=== PATIENT | female | born 1960 | race Caucasian/White ===

== ENCOUNTER 2021-03-29 11:53 | Emergency (ER) | payer BC ==
[~2021-03-29] VITALS: Ht 175.3 cm; Wt 136.4 kg
[2021-03-29 14:10] LABS: BASOPHILS % (AUTO) 0.6 % (0-1); EOSINOPHILS % (AUTO) 0 % (0-6); HEMATOCRIT 39.1 % (35.0-45.0); HEMOGLOBIN 13.4 g/dl (12.0-16.0); LYMPHOCYTES # (AUTO) 0.8 X10'3 (1.1-4.8); LYMPHOCYTES % (AUTO) 24.1 % (21-51); MEAN CORPUSCULAR HGB CONC 34.2 g/dL (33.0-36.5); MEAN PLATELET VOLUME 6.9 FL (7.4-10.4); MONOCYTES # (AUTO) 0.2 X10'3 (0-0.9); MONOCYTES % (AUTO) 4.9 % (2-12); NEUTROPHILS # (AUTO) 2.5 X10'3 (1.8-7.7); NEUTROPHILS % (AUTO) 70.4 % (42-75); PLATELET COUNT 228 X10'3 (140-440); RED CELL DISTRIBUTION WIDTH 13.5 % (11.5-14.5); WHITE BLOOD COUNT 3.5 X10'3 (4.5-11.0)
[2021-03-29 14:30] LABS: ALANINE AMINOTRANSFERASE 72 U/L (12-78); ALBUMIN 2.9 G/DL (3.4-5.0); ALBUMIN/GLOBULIN RATIO 0.7 (1.1-1.5); ALKALINE PHOSPHATASE 95 IU/L (46-116); ANION GAP 6 (8-16); ASPARTATE AMINO TRANSFERASE 50 U/L (10-37); BILIRUBIN,TOTAL 0.7 MG/DL (0.1-1.0); BLOOD UREA NITROGEN 19 MG/DL (7-18); BUN/CREATININE RATIO 22.4 (6.6-38.0); CALCIUM 8.1 MG/DL (8.5-10.1); CHLORIDE 95 MMOL/L (99-107); CREATININE 0.85 MG/DL (0.40-0.90); GLUCOSE 172 MG/DL (70-104); POTASSIUM 3.1 MMOL/L (3.5-5.1); SODIUM 129 MMOL/L (135-145); TOTAL CARBON DIOXIDE 27.9 MMOL/L (24-32); TOTAL PROTEIN 7.3 G/DL (6.4-8.2); eGFR 69 ML/MIN
[2021-03-29] MEDS ORDERED: potassium Cl 20 mEq SR tablet PO PRN (14:45)
[2021-03-29] MEDS ORDERED: normal saline 1000ML IV soln IVB ONE (14:45)
--- NOTE | 2021-03-29 15:00 | NUR ---
92% ON RA PRIOR TO WALKING WALKED 25FT 85% RA 2L NC 97 %
[2021-03-29] MEDS ORDERED: DEXA6TAB6 PO (15:08)
[2021-03-29] MEDS ORDERED: BUDE180A INH (15:08)
[2021-03-29] MEDS ORDERED: acetaminophen 325mg tablet PO ONE (15:10)
[2021-03-29] MEDS ORDERED: iohexol 350MG/ML 100ml bottle IV ONE (15:28)
[2021-03-29] MEDS ORDERED: ibuprofen tablet 400 MG TABLET PO ONE (16:20)
[2021-03-29 17:54] VITALS: BP 143/70
== END 2021-03-29 18:20 | disposition home or self-care (01) ==
LOC: ER 11:55
DX: U07.1 COVID-19 (principal)
CPT/HCPCS: 36415; 71045; 71275; 80053; 84145; 85025; 85379; 87635; 99285; C9803; J7030; Q9967

== ENCOUNTER 2021-04-01 12:56 | Inpatient (IN) | payer BC ==
[~2021-04-01] VITALS: Ht 175.3 cm; Wt 131.8 kg
[~2021-04-01 12:56] MED LIST: BUDE180A INH; DEXA6TAB6 PO
[2021-04-01] MEDS ORDERED: ALBUTEROL INHALER 1 PUFF/90 MCG INHALER IH PRN (13:00)
[2021-04-01] MEDS ORDERED: aspirin 81mg tab.chew PO ONE ×2 (13:00→18:50)
[2021-04-01 13:45] LABS: ABG BASE EXCESS 3.3 mmol/L (-2.0-2.0); ABG OXYGEN SATURATION 90.6 % (94-97); ABG PCO2 (T) 38.4 mmHg (32.0-45.0); ABG PO2 (T) 56.1 mmHg (75.0-100.0); ALLEN'S TEST POSITIVE; FCOHb 0.8 % (0.0-3.9); FLOW 15 L/min; FMetHb 0.3 % (0.0-1.5); FO2Hb 89.6 % (94-97); PATIENT TEMPERATURE 37.2; TOTAL HEMOGLOBIN 12.7 G/dl (12.0-16.0)
[2021-04-01] MEDS ORDERED: dexamethasone inj 8 MG in normal saline 50ml IV soln 50 ML IV ONE (13:45)
[2021-04-01 13:51] LABS: BASOPHILS % (AUTO) 0.2 % (0-1); EOSINOPHILS % (AUTO) 0 % (0-6); HEMATOCRIT 36.9 % (35.0-45.0); HEMOGLOBIN 12.2 g/dl (12.0-16.0); LYMPHOCYTES # (AUTO) 0.8 X10'3 (1.1-4.8); LYMPHOCYTES % (AUTO) 7.4 % (21-51); MEAN CORPUSCULAR HEMOGLOBIN 28.5 PG (27.0-31.0); MEAN CORPUSCULAR VOLUME 86.2 FL (78-98); MEAN PLATELET VOLUME 7.1 FL (7.4-10.4); MONOCYTES # (AUTO) 0.5 X10'3 (0-0.9); MONOCYTES % (AUTO) 4.1 % (2-12); NEUTROPHILS % (AUTO) 88.3 % (42-75); PLATELET COUNT 287 X10'3 (140-440); RED BLOOD COUNT 4.28 X10'6 (4.20-5.60); RED CELL DISTRIBUTION WIDTH 13.6 % (11.5-14.5); WHITE BLOOD COUNT 11.3 X10'3 (4.5-11.0)
[2021-04-01] MEDS ORDERED: enoxaparin 100mg/ml syringe SUBCUT ONE (14:05)
[2021-04-01 14:16] LABS: ALANINE AMINOTRANSFERASE 59 U/L (12-78); ALBUMIN 2.6 G/DL (3.4-5.0); ALBUMIN/GLOBULIN RATIO 0.6 (1.1-1.5); ALKALINE PHOSPHATASE 80 IU/L (46-116); ANION GAP 9 (8-16); ASPARTATE AMINO TRANSFERASE 54 U/L (10-37); BILIRUBIN,TOTAL 0.5 MG/DL (0.1-1.0); BLOOD UREA NITROGEN 19 MG/DL (7-18); BUN/CREATININE RATIO 22.1 (6.6-38.0); C-REACTIVE PROTEIN 4.68 MG/DL (0.0-0.5); CALCIUM 7.9 MG/DL (8.5-10.1); CHLORIDE 100 MMOL/L (99-107); CREATININE 0.86 MG/DL (0.40-0.90); GLUCOSE 207 MG/DL (70-104); POTASSIUM 3.9 MMOL/L (3.5-5.1); SODIUM 137 MMOL/L (135-145); TOTAL PROTEIN 7.2 G/DL (6.4-8.2); eGFR 68 ML/MIN
[2021-04-01] MEDS ORDERED: iohexol 350MG/ML 100ml bottle IV ONE (14:23)
[2021-04-01] MEDS ORDERED: LOSA1TAB39 PO (16:00)
[2021-04-01] MEDS ORDERED: ALBU8HFA PO (16:00)
[2021-04-01] MEDS ORDERED: ESTR1TAB31 PO (16:00)
[2021-04-01] MEDS ORDERED: BUDE180A INH (16:01)
[2021-04-01] MEDS ORDERED: DEXA6TAB PO (16:01)
[2021-04-01 16:44] LABS: ABG BASE EXCESS 0.6 mmol/L (-2.0-2.0); ABG HCO3 24.7 mmol/L (22.0-26.0); ABG OXYGEN SATURATION 94.6 % (94-97); ABG PCO2 (T) 37.9 mmHg (32.0-45.0); ABG PO2 (T) 71.8 mmHg (75.0-100.0); ALLEN'S TEST POSITIVE; FCOHb 0.7 % (0.0-3.9); FLOW 15 L/min; FO2Hb 93.9 % (94-97); TOTAL HEMOGLOBIN 12.4 G/dl (12.0-16.0)
[2021-04-01] MEDS ORDERED: LORazepam 2 mg/ml vial IV ONE (17:15)
[2021-04-01] MEDS ORDERED: diphenhydrAMINE 25mg capsule PO PRN (18:50)
[2021-04-01] MEDS ORDERED: magnesium Cl slow-release 64mg tablet PO PRN (18:50)
[2021-04-01] MEDS ORDERED: magnesium 2GM in 50ml NS 50 ML IV PRN (18:50)
[2021-04-01] MEDS ORDERED: HYDROcodone/acetaminophen 10/325mg tab PO PRN (18:50)
[2021-04-01] MEDS ORDERED: acetaminophen 325mg tablet PO PRN ×2 (18:50)
[2021-04-01] MEDS ORDERED: morphine 2 MG/ML inj. syringe IV PRN ×2 (18:50)
[2021-04-01] MEDS ORDERED: potassium Cl 20 mEq SR tablet PO PRN ×2 (18:50)
[2021-04-01] MEDS ORDERED: magnesium 4gm in 100ml NS 100 ML IV PRN (18:50)
[2021-04-01] MEDS ORDERED: potassium Cl 40MEQ/1/2NS 520ml 520 ML IV PRN ×2 (18:50)
[2021-04-01] MEDS ORDERED: bisacodyl 10mg suppository rectal RC PRN (18:50)
[2021-04-01] MEDS ORDERED: acetaminophen 650mg rectal suppository RC PRN (18:50)
[2021-04-01] MEDS ORDERED: albuterol 60 PUFF/8GM Inhaler IH PRN (18:50)
[2021-04-01] MEDS ORDERED: magnesium hydroxide 30ml (MOM) UD suspension PO PRN (18:50)
[2021-04-01] MEDS ORDERED: mag hydrox/Alum hydrox/simeth 30ml oral suspension PO PRN (18:50)
[2021-04-01] MEDS ORDERED: HYDROcodone/acetaminophen 5mg/325mg tablet PO PRN (18:50)
[2021-04-01] MEDS ORDERED: ondansetron/PF 4mg/2ml inj IV PRN (18:50)
[2021-04-01 19:21] LABS: HEMOGLOBIN A1C 7.8 % (4.5-6.2)
[2021-04-01] MEDS: K and/or MAG REPLACEMENT MC SCH (20:00)
[2021-04-01 20:20] VITALS: BP 138/66
--- NOTE | 2021-04-01 20:20 | NUR ---
PT ARRIVED TO 4009[facility] FROM ER. PT AMBULATED TO BED. RT HELP SET UP O2. VSS. PT HAS BEEN ORIENTED TO THE ROOM. RECEIVED REPORT FROM RAMU MANZANARES PRIOR TO PT'S ARRIVAL.
[2021-04-01] MEDS: enoxaparin 40mg/0.4ml syringe SUBCUT SCH (20:59)
[2021-04-01] MEDS: dexamethasone 4mg/ml inj IV SCH (21:00)
[2021-04-01] MEDS: docusate sod 100mg capsule PO SCH (21:00)
[2021-04-01 21:12] LABS: CLARITY,URINE CLEAR (Clear); COLOR,URINE YELLOW (Yellow); UA COLLECTION TYPE NON-SPECIFIED
[2021-04-01 21:13] LABS: GLUCOSE, URINE 500 mg/dl (Neg); KETONES,URINE 80 mg/dl (Neg); LEUKOCYTE ESTERASE ,URINE NEGATIVE (Neg); NITRITES, URINE NEGATIVE (Neg); PROTEIN,URINE NEGATIVE (Neg); UROBILINOGEN,URINE 0.2 E.U/dL (0.2-1.0)
[2021-04-01 21:14] LABS: BACTERIA,URINE NONE SEEN /HPF (Neg); OCCULT BLOOD,URINE TRACE-LYSED (Neg); RBC,URINE 0-2 /HPF (0-2); SQUAMOUS EPITHELIAL CELL,UR FEW /LPF (FEW); WBC,URINE NONE SEEN /HPF (0-4)
[2021-04-01] MEDS ORDERED: dextrose ORAL solution 15 GM/59 ML bottle PO PRN ×2 (21:50)
[2021-04-01] MEDS ORDERED: dextrose 50%-water 50ml dispensing syringe IV PRN ×2 (21:50)
[2021-04-01] MEDS ORDERED: MESSAGE TO PHARMACY PO ONE (21:50)
[2021-04-01] MEDS ORDERED: glucagon, human recombinant 1mg kit SUBCUT PRN (21:50)
[2021-04-01 22:00] VITALS: BP 137/68
[2021-04-01] MEDS: BUDESONIDE IH SCH (22:18)
[2021-04-01] MEDS: insulin Lispro (HumaLOG) vial - multi-dose SQ SCH (22:25)
[2021-04-01] MEDS: insulin glargine (Lantus) pen - multi-dose SQ SCH (22:28)
[2021-04-02 02:00] VITALS: BP 115/48
--- NOTE | 2021-04-02 06:25 | NUR ---
Problems reprioritized. Patient report given, questions answered & plan of care reviewed with RAMU BAIRES.
[2021-04-02] MEDS: enoxaparin 40mg/0.4ml syringe SUBCUT SCH ×2 (07:56→20:53)
[2021-04-02] MEDS: HYDROchlorothiazide 25mg tablet PO SCH (07:57)
[2021-04-02] MEDS: docusate sod 100mg capsule PO SCH ×2 (07:57→20:53)
[2021-04-02] MEDS: aspirin 81mg tab.chew PO SCH (07:58)
[2021-04-02] MEDS: K and/or MAG REPLACEMENT MC SCH ×2 (08:00→20:00)
[2021-04-02] MEDS: dexamethasone 4mg/ml inj IV SCH ×2 (08:00→20:53)
[2021-04-02] MEDS: losartan 50mg tablet PO SCH (08:04)
[2021-04-02 08:05] VITALS: BP 147/77
[2021-04-02 08:19] LABS: BASOPHILS % (AUTO) 0.3 % (0-1); EOSINOPHILS % (AUTO) 0 % (0-6); HEMATOCRIT 36.2 % (35.0-45.0); HEMOGLOBIN 12.2 g/dl (12.0-16.0); LYMPHOCYTES # (AUTO) 1.1 X10'3 (1.1-4.8); LYMPHOCYTES % (AUTO) 11.4 % (21-51); MEAN CORPUSCULAR HEMOGLOBIN 29.3 PG (27.0-31.0); MEAN CORPUSCULAR HGB CONC 33.7 g/dL (33.0-36.5); MEAN CORPUSCULAR VOLUME 86.8 FL (78-98); MEAN PLATELET VOLUME 7.4 FL (7.4-10.4); MONOCYTES # (AUTO) 0.5 X10'3 (0-0.9); MONOCYTES % (AUTO) 5.2 % (2-12); NEUTROPHILS # (AUTO) 8.3 X10'3 (1.8-7.7); NEUTROPHILS % (AUTO) 83.1 % (42-75); PLATELET COUNT 309 X10'3 (140-440); RED BLOOD COUNT 4.17 X10'6 (4.20-5.60); RED CELL DISTRIBUTION WIDTH 13.6 % (11.5-14.5); WHITE BLOOD COUNT 9.9 X10'3 (4.5-11.0)
[2021-04-02] MEDS: BUDESONIDE IH SCH ×2 (08:28→20:04)
[2021-04-02] MEDS: insulin Lispro (HumaLOG) vial - multi-dose SQ SCH ×2 (08:35→18:44)
[2021-04-02 08:46] LABS: D-DIMER 2.04 MG/L FEU (0-0.50)
[2021-04-02 09:03] LABS: ALANINE AMINOTRANSFERASE 53 U/L (12-78); ALBUMIN 2.5 G/DL (3.4-5.0); ALBUMIN/GLOBULIN RATIO 0.5 (1.1-1.5); ALKALINE PHOSPHATASE 96 IU/L (46-116); ANION GAP 11 (8-16); ASPARTATE AMINO TRANSFERASE 48 U/L (10-37); BILIRUBIN,TOTAL 0.4 MG/DL (0.1-1.0); BLOOD UREA NITROGEN 14 MG/DL (7-18); BUN/CREATININE RATIO 17.7 (6.6-38.0); C-REACTIVE PROTEIN 7.85 MG/DL (0.0-0.5); CALCIUM 8.4 MG/DL (8.5-10.1); CHLORIDE 102 MMOL/L (99-107); CHOLESTEROL 169 MG/DL (0-200); CREATININE 0.79 MG/DL (0.40-0.90); GLUCOSE 231 MG/DL (70-104); HDL CHOLESTEROL 42 MG/DL (35-60); LACTATE DEHYDROGENASE 748 U/L (81-234); LDL CHOLESTEROL 89 MG/DL (50-100); MAGNESIUM 2.7 MG/DL (1.5-2.4); PHOSPHORUS 3.5 MG/DL (2.3-4.5); POTASSIUM 4.4 MMOL/L (3.5-5.1); SODIUM 139 MMOL/L (135-145); TOTAL CARBON DIOXIDE 25.8 MMOL/L (24-32); TOTAL PROTEIN 7.3 G/DL (6.4-8.2); TRIGLYCERIDES 283 MG/DL (20-135); eGFR 75 ML/MIN
[2021-04-02 09:56] LABS: NUCLEATED RED BLOOD CELLS 1 /100WBC (0-0); PLATELET ESTIMATE NORMAL; TOTAL CELLS COUNTED 100
[2021-04-02 09:57] LABS: LARGE PLATELETS FEW
[2021-04-02 10:00] VITALS: BP 148/74
--- NOTE | 2021-04-02 10:50 | NUR ---
DM Consult: Pt hx "borderline DM no meds" w/ A1C 7.8% per EMR. Pt admit DX COVID-[address] RD d/w RN regarding possibly new DM this admit and if so pt would need DM DX by MD prior to RD education. PO 0% carbs first two meals pending other meal documentation on 15L HFNC per EMR. Glu 209-296mg/dl started on glycemic protocol receiving decadron. Will continue to monitor for further PO trends and nutrition intervention needs this admit. Rec: 1. continue carb controlled/heart healthy diet per MD; encourage PO 2. monitor for ONS needs pending PO trends 3. routine bowel care 4. scaled wt this admit; subsequent weekly wts 5. DM DX by MD this admit prior to RD education once more appropriate Addendum: 04/02/21 at [address] Amended: Links added.
[2021-04-02] MEDS ORDERED: zolpidem 5mg tablet PO PRN (12:25)
[2021-04-02] MEDS ORDERED: TOCILIZUMAB 80MG/4 ML INJ. 800 MG in normal saline 100ml IV soln 60 ML IV ONE (13:00)
[2021-04-02] MEDS ORDERED: REMDESIVIR INJ 200 MG in normal saline 100ml IV soln 60 ML IV ONE (13:30)
[2021-04-02 14:00] VITALS: BP 134/65
[2021-04-02 18:00] VITALS: BP 137/66
[2021-04-02] MEDS: vancomycin/NS 1 GM ADD-VANTAGE 250 ML IV SCH (18:08)
[2021-04-02] MEDS: ascorbic acid 500mg tablet PO SCH (18:15)
[2021-04-02] MEDS: zinc sulfate 220mg capsule PO SCH (20:53)
--- NOTE | 2021-04-02 21:08 | NUR ---
notified dr. Allen regarding positive blood culture. gram pos clusters in aerobic bottle. pt is already on vancomycin. no new order received.
[2021-04-02] MEDS: insulin glargine (Lantus) pen - multi-dose SQ SCH (21:12)
[2021-04-02 22:00] VITALS: BP 154/79
[2021-04-03] MEDS: vancomycin/NS 1 GM ADD-VANTAGE 250 ML IV SCH ×2 (00:38→08:11)
[2021-04-03 02:00] VITALS: BP 148/83
--- NOTE | 2021-04-03 06:19 | NUR ---
Problems reprioritized. Patient report given, questions answered & plan of care reviewed with neris Nassar.
[2021-04-03 07:00] VITALS: BP 108/63
[2021-04-03 07:23] LABS: BASOPHILS % (AUTO) 0.3 % (0-1); EOSINOPHILS % (AUTO) 0 % (0-6); HEMATOCRIT 37.3 % (35.0-45.0); HEMOGLOBIN 12.2 g/dl (12.0-16.0); LYMPHOCYTES # (AUTO) 1.1 X10'3 (1.1-4.8); LYMPHOCYTES % (AUTO) 11.2 % (21-51); MEAN CORPUSCULAR HEMOGLOBIN 28.6 PG (27.0-31.0); MEAN CORPUSCULAR HGB CONC 32.7 g/dL (33.0-36.5); MEAN CORPUSCULAR VOLUME 87.4 FL (78-98); MEAN PLATELET VOLUME 7.3 FL (7.4-10.4); MONOCYTES # (AUTO) 0.4 X10'3 (0-0.9); MONOCYTES % (AUTO) 4.4 % (2-12); NEUTROPHILS # (AUTO) 8.2 X10'3 (1.8-7.7); NEUTROPHILS % (AUTO) 84.1 % (42-75); PLATELET COUNT 303 X10'3 (140-440); RED BLOOD COUNT 4.27 X10'6 (4.20-5.60); RED CELL DISTRIBUTION WIDTH 13.4 % (11.5-14.5); WHITE BLOOD COUNT 9.7 X10'3 (4.5-11.0)
[2021-04-03] MEDS ORDERED: cholecalciferol (vitamin D3) 1,000 unit (25mcg) tablet PO SCH (08:00)
[2021-04-03] MEDS: docusate sod 100mg capsule PO SCH ×2 (08:00→20:15)
[2021-04-03] MEDS ORDERED: REMDESIVIR INJ 100 MG in normal saline 100ml IV soln 80 ML IV SCH (08:00)
[2021-04-03] MEDS: losartan 50mg tablet PO SCH (08:00)
[2021-04-03 08:06] LABS: D-DIMER 12.46 MG/L FEU (0-0.50)
[2021-04-03] MEDS: enoxaparin 40mg/0.4ml syringe SUBCUT SCH (08:12)
[2021-04-03] MEDS: HYDROchlorothiazide 25mg tablet PO SCH (08:12)
[2021-04-03] MEDS: aspirin 81mg tab.chew PO SCH (08:12)
[2021-04-03] MEDS: ascorbic acid 500mg tablet PO SCH ×2 (08:13→17:47)
[2021-04-03] MEDS: insulin Lispro (HumaLOG) vial - multi-dose SQ SCH ×3 (08:18→19:11)
[2021-04-03] MEDS: dexamethasone 4mg/ml inj IV SCH ×2 (08:19→20:15)
[2021-04-03 08:32] LABS: LARGE PLATELETS FEW; PLATELET ESTIMATE NORMAL; TOTAL CELLS COUNTED 100
[2021-04-03 08:50] LABS: ALANINE AMINOTRANSFERASE 54 U/L (12-78); ALBUMIN 2.4 G/DL (3.4-5.0); ALBUMIN/GLOBULIN RATIO 0.5 (1.1-1.5); ALKALINE PHOSPHATASE 115 IU/L (46-116); ANION GAP 8 (8-16); ASPARTATE AMINO TRANSFERASE 42 U/L (10-37); BILIRUBIN,TOTAL 0.5 MG/DL (0.1-1.0); BLOOD UREA NITROGEN 18 MG/DL (7-18); BUN/CREATININE RATIO 23.1 (6.6-38.0); CALCIUM 8.4 MG/DL (8.5-10.1); CHLORIDE 101 MMOL/L (99-107); CREATININE 0.78 MG/DL (0.40-0.90); GLUCOSE 190 MG/DL (70-104); LACTATE DEHYDROGENASE 650 U/L (81-234); MAGNESIUM 2.7 MG/DL (1.5-2.4); PHOSPHORUS 4.5 MG/DL (2.3-4.5); POTASSIUM 4.1 MMOL/L (3.5-5.1); SODIUM 137 MMOL/L (135-145); TOTAL CARBON DIOXIDE 28.2 MMOL/L (24-32); TOTAL PROTEIN 6.8 G/DL (6.4-8.2); eGFR 76 ML/MIN
[2021-04-03 10:00] VITALS: BP 123/67
[2021-04-03] MEDS: K and/or MAG REPLACEMENT MC SCH ×2 (10:33→20:00)
[2021-04-03] MEDS: BUDESONIDE IH SCH ×2 (10:43→19:40)
[2021-04-03] MEDS: zinc sulfate 220mg capsule PO SCH ×2 (10:43→20:15)
[2021-04-03 14:00] VITALS: BP 144/78
[2021-04-03] MEDS ORDERED: VANCOMYCIN LEVEL IV ONE (15:30)
[2021-04-03] MEDS: VANCOmycin 1250MG/NS 250ml Bag 250 ML IV SCH (17:47)
[2021-04-03 18:00] VITALS: BP 145/76
[2021-04-03] MEDS: lactobacillus rhamnosus 10,000 MMU CELLS/CAPSULE PO SCH (20:14)
[2021-04-03] MEDS: nystatin 500,000 unit/5ML UD oral suspension PO SCH (20:14)
[2021-04-03] MEDS: enoxaparin 30mg/0.3ml syringe SUBCUT SCH (20:16)
[2021-04-03] MEDS: enoxaparin 100mg/ml syringe SUBCUT SCH (20:17)
[2021-04-03 21:40] VITALS: BP 163/79
[2021-04-03] MEDS: insulin glargine (Lantus) pen - multi-dose SQ SCH (21:57)
[2021-04-04] MEDS: VANCOmycin 1250MG/NS 250ml Bag 250 ML IV SCH ×2 (01:19→10:08)
[2021-04-04 02:00] VITALS: BP 133/63
--- NOTE | 2021-04-04 05:51 | NUR ---
PATIENT IN BED RESTING WITH EYES CLOSED AT THIS TIME. NO SIGNS OF DISTRESS NOTED. NO COMPLAINTS OF DISCOMFORT. VSS THROUGHOUT SHIFT. CALL LIGHT PLACED WITHIN REACH OF PATIENT. INSTRUCTED TO CALL FOR ASSISTANCE. VITAL SIGNS AND ASSESSMENT DOCUMENTED IN INTERVENTIONS. WILL CONTINUE TO MONITOR.
[2021-04-04] MEDS: docusate sod 100mg capsule PO SCH ×2 (08:00→19:26)
[2021-04-04] MEDS: BUDESONIDE IH SCH ×2 (08:00→19:33)
[2021-04-04 09:09] LABS: BASOPHILS % (AUTO) 0.3 % (0-1); EOSINOPHILS % (AUTO) 0.1 % (0-6); HEMATOCRIT 36.5 % (35.0-45.0); HEMOGLOBIN 12.5 g/dl (12.0-16.0); LYMPHOCYTES # (AUTO) 1.2 X10'3 (1.1-4.8); LYMPHOCYTES % (AUTO) 12.8 % (21-51); MEAN CORPUSCULAR HEMOGLOBIN 29.1 PG (27.0-31.0); MEAN CORPUSCULAR HGB CONC 34.3 g/dL (33.0-36.5); MEAN CORPUSCULAR VOLUME 84.9 FL (78-98); MEAN PLATELET VOLUME 7.1 FL (7.4-10.4); MONOCYTES # (AUTO) 0.3 X10'3 (0-0.9); MONOCYTES % (AUTO) 3.7 % (2-12); NEUTROPHILS # (AUTO) 7.8 X10'3 (1.8-7.7); NEUTROPHILS % (AUTO) 83.1 % (42-75); PLATELET COUNT 280 X10'3 (140-440); RED CELL DISTRIBUTION WIDTH 13.2 % (11.5-14.5); WHITE BLOOD COUNT 9.3 X10'3 (4.5-11.0)
[2021-04-04 09:35] LABS: ALANINE AMINOTRANSFERASE 50 U/L (12-78); ALBUMIN 2.4 G/DL (3.4-5.0); ALBUMIN/GLOBULIN RATIO 0.6 (1.1-1.5); ALKALINE PHOSPHATASE 117 IU/L (46-116); ANION GAP 8 (8-16); ASPARTATE AMINO TRANSFERASE 33 U/L (10-37); BILIRUBIN,TOTAL 0.5 MG/DL (0.1-1.0); BLOOD UREA NITROGEN 19 MG/DL (7-18); C-REACTIVE PROTEIN 1.38 MG/DL (0.0-0.5); CALCIUM 7.9 MG/DL (8.5-10.1); CHLORIDE 101 MMOL/L (99-107); CREATININE 0.76 MG/DL (0.40-0.90); GLUCOSE 139 MG/DL (70-104); LACTATE DEHYDROGENASE 629 U/L (81-234); MAGNESIUM 2.4 MG/DL (1.5-2.4); PHOSPHORUS 4.3 MG/DL (2.3-4.5); POTASSIUM 4.1 MMOL/L (3.5-5.1); SODIUM 141 MMOL/L (135-145); TOTAL CARBON DIOXIDE 32.4 MMOL/L (24-32); TOTAL PROTEIN 6.6 G/DL (6.4-8.2); eGFR 78 ML/MIN
[2021-04-04 10:00] VITALS: BP 110/64
[2021-04-04] MEDS: cholecalciferol (vitamin D3) 1,000 unit (25mcg) tablet PO SCH (10:00)
[2021-04-04] MEDS: K and/or MAG REPLACEMENT MC SCH (10:00)
[2021-04-04] MEDS: enoxaparin 30mg/0.3ml syringe SUBCUT SCH ×2 (10:06→19:27)
[2021-04-04] MEDS: lactobacillus rhamnosus 10,000 MMU CELLS/CAPSULE PO SCH ×2 (10:07→19:26)
[2021-04-04] MEDS: aspirin 81mg tab.chew PO SCH (10:07)
[2021-04-04] MEDS: HYDROchlorothiazide 25mg tablet PO SCH (10:07)
[2021-04-04] MEDS: nystatin 500,000 unit/5ML UD oral suspension PO SCH ×2 (10:07→19:47)
[2021-04-04] MEDS: enoxaparin 100mg/ml syringe SUBCUT SCH ×2 (10:07→19:27)
[2021-04-04] MEDS: ascorbic acid 500mg tablet PO SCH ×2 (10:08→17:51)
[2021-04-04] MEDS: losartan 50mg tablet PO SCH (10:08)
[2021-04-04] MEDS: dexamethasone 4mg/ml inj IV SCH ×2 (10:08→19:26)
[2021-04-04 10:11] LABS: PLATELET ESTIMATE NORMAL; TOTAL CELLS COUNTED 100
[2021-04-04 10:12] LABS: POLYCHROMASIA 1+
[2021-04-04] MEDS: zinc sulfate 220mg capsule PO SCH ×2 (10:12→19:26)
[2021-04-04] MEDS ORDERED: ibuprofen 200mg tablet PO PRN (11:35)
[2021-04-04] MEDS: salt irrigation nasal spray 45 ML SPRAY NS PRN (13:02)
--- NOTE | 2021-04-04 14:39 | NUR ---
Reassessment: Pt PO remains poor 0-25% avg heart healthy/carb controlled meals not meeting needs. ONS not appropriate since pt currently not drinking milks/liquid kcals. Noted on 15L non-rebreather from prior high flow per EMR. May benefit from liberalization to regular diet to optimize PO intake. LBM 04/03. Will continue to monitor. Rec: 1. liberalize to regular diet given poor PO intake; encourage PO 2. IF PO liquids improves consider Ensure Enlive TIDWM 3. routine bowel care 4. scaled wt this admit; subsequent weekly wts 5. DM DX by MD this admit prior to RD education; once more appropriate Addendum: 04/04/21 at [address] Amended: Links added.
[2021-04-04] MEDS ORDERED: VANCOMYCIN LEVEL IV ONE (16:30)
[2021-04-04] MEDS: insulin Lispro (HumaLOG) vial - multi-dose SQ SCH (19:26)
[2021-04-04] MEDS: insulin glargine (Lantus) pen - multi-dose SQ SCH (21:25)
[2021-04-04 22:00] VITALS: BP 158/74
[2021-04-05 02:00] VITALS: BP 135/69
[2021-04-05 06:00] VITALS: BP 130/60
--- NOTE | 2021-04-05 06:47 | NUR ---
Problems reprioritized. Patient report given, questions answered & plan of care reviewed with KATIANA
[2021-04-05 08:20] LABS: BASOPHILS % (AUTO) 0.3 % (0-1); EOSINOPHILS % (AUTO) 0.2 % (0-6); HEMATOCRIT 38.2 % (35.0-45.0); HEMOGLOBIN 13.1 g/dl (12.0-16.0); LYMPHOCYTES # (AUTO) 1.1 X10'3 (1.1-4.8); LYMPHOCYTES % (AUTO) 12.1 % (21-51); MEAN CORPUSCULAR HEMOGLOBIN 29.2 PG (27.0-31.0); MEAN CORPUSCULAR HGB CONC 34.3 g/dL (33.0-36.5); MEAN CORPUSCULAR VOLUME 85.2 FL (78-98); MEAN PLATELET VOLUME 7.2 FL (7.4-10.4); MONOCYTES # (AUTO) 0.5 X10'3 (0-0.9); MONOCYTES % (AUTO) 4.9 % (2-12); NEUTROPHILS # (AUTO) 7.7 X10'3 (1.8-7.7); NEUTROPHILS % (AUTO) 82.5 % (42-75); PLATELET COUNT 311 X10'3 (140-440); RED BLOOD COUNT 4.49 X10'6 (4.20-5.60); RED CELL DISTRIBUTION WIDTH 13.1 % (11.5-14.5); WHITE BLOOD COUNT 9.4 X10'3 (4.5-11.0)
[2021-04-05 08:45] LABS: ASPARTATE AMINO TRANSFERASE 29 U/L (10-37); BILIRUBIN,TOTAL 0.6 MG/DL (0.1-1.0); BLOOD UREA NITROGEN 17 MG/DL (7-18); BUN/CREATININE RATIO 23.9 (6.6-38.0); C-REACTIVE PROTEIN 0.49 MG/DL (0.0-0.5); CHLORIDE 98 MMOL/L (99-107); CREATININE 0.71 MG/DL (0.40-0.90); GLUCOSE 147 MG/DL (70-104); PHOSPHORUS 4.6 MG/DL (2.3-4.5); POTASSIUM 3.8 MMOL/L (3.5-5.1); eGFR 85 ML/MIN
[2021-04-05 08:51] LABS: ALANINE AMINOTRANSFERASE 55 U/L (12-78); ALBUMIN 2.7 G/DL (3.4-5.0); ALBUMIN/GLOBULIN RATIO 0.6 (1.1-1.5); ALKALINE PHOSPHATASE 108 IU/L (46-116); ANION GAP 10 (8-16); CALCIUM 8.3 MG/DL (8.5-10.1); LACTATE DEHYDROGENASE 597 U/L (81-234); MAGNESIUM 2.3 MG/DL (1.5-2.4); SODIUM 138 MMOL/L (135-145); TOTAL CARBON DIOXIDE 30.4 MMOL/L (24-32)
[2021-04-05 09:18] LABS: D-DIMER 22.39 MG/L FEU (0-0.50)
[2021-04-05 10:00] VITALS: BP 127/59
[2021-04-05] MEDS: K and/or MAG REPLACEMENT MC SCH ×3 (10:00→20:00)
[2021-04-05] MEDS: BUDESONIDE IH SCH ×2 (10:00→21:23)
[2021-04-05] MEDS: docusate sod 100mg capsule PO SCH ×2 (10:00→19:07)
[2021-04-05] MEDS: aspirin 81mg tab.chew PO SCH (10:17)
[2021-04-05] MEDS: insulin Lispro (HumaLOG) vial - multi-dose SQ SCH ×3 (10:17→19:16)
[2021-04-05] MEDS: losartan 50mg tablet PO SCH (10:18)
[2021-04-05] MEDS: HYDROchlorothiazide 25mg tablet PO SCH (10:19)
[2021-04-05] MEDS: ascorbic acid 500mg tablet PO SCH ×2 (10:19→17:44)
[2021-04-05] MEDS: zinc sulfate 220mg capsule PO SCH ×2 (10:19→19:08)
[2021-04-05] MEDS: cholecalciferol (vitamin D3) 1,000 unit (25mcg) tablet PO SCH (10:19)
[2021-04-05] MEDS: lactobacillus rhamnosus 10,000 MMU CELLS/CAPSULE PO SCH ×2 (10:20→19:07)
[2021-04-05] MEDS: enoxaparin 30mg/0.3ml syringe SUBCUT SCH ×2 (10:20→19:08)
[2021-04-05] MEDS: enoxaparin 100mg/ml syringe SUBCUT SCH ×2 (10:20→19:09)
[2021-04-05] MEDS: nystatin 500,000 unit/5ML UD oral suspension PO SCH ×2 (10:21→19:08)
[2021-04-05] MEDS: dexamethasone 4mg/ml inj IV SCH ×2 (10:21→19:08)
[2021-04-05 18:00] VITALS: BP 123/64
[2021-04-05] MEDS: insulin glargine (Lantus) pen - multi-dose SQ SCH (21:14)
[2021-04-06 02:00] VITALS: BP 129/65
--- NOTE | 2021-04-06 06:08 | NUR ---
Problems reprioritized. Patient report given, questions answered & plan of care reviewed with SRIDHAR GUALLPA.
[2021-04-06] MEDS: cholecalciferol (vitamin D3) 1,000 unit (25mcg) tablet PO SCH (08:30)
[2021-04-06] MEDS: zinc sulfate 220mg capsule PO SCH ×2 (08:30→19:14)
[2021-04-06] MEDS: HYDROchlorothiazide 25mg tablet PO SCH (08:31)
[2021-04-06] MEDS: ascorbic acid 500mg tablet PO SCH ×2 (08:31→16:50)
[2021-04-06] MEDS: losartan 50mg tablet PO SCH (08:31)
[2021-04-06] MEDS: aspirin 81mg tab.chew PO SCH (08:31)
[2021-04-06] MEDS: docusate sod 100mg capsule PO SCH ×2 (08:32→19:15)
[2021-04-06] MEDS: enoxaparin 100mg/ml syringe SUBCUT SCH ×2 (08:32→19:15)
[2021-04-06] MEDS: dexamethasone 4mg/ml inj IV SCH ×2 (08:32→19:14)
[2021-04-06] MEDS: enoxaparin 30mg/0.3ml syringe SUBCUT SCH ×2 (08:32→19:14)
[2021-04-06] MEDS: nystatin 500,000 unit/5ML UD oral suspension PO SCH ×2 (08:32→19:14)
[2021-04-06] MEDS: BUDESONIDE IH SCH ×2 (08:33→19:25)
[2021-04-06] MEDS: lactobacillus rhamnosus 10,000 MMU CELLS/CAPSULE PO SCH ×2 (08:34→19:14)
[2021-04-06] MEDS: insulin Lispro (HumaLOG) vial - multi-dose SQ SCH ×3 (08:42→19:13)
[2021-04-06 09:10] LABS: BASOPHILS # (AUTO) 0.1 X10'3 (0-0.2); BASOPHILS % (AUTO) 0.5 % (0-1); EOSINOPHILS # (AUTO) 0.1 X10'3 (0-0.9); EOSINOPHILS % (AUTO) 0.7 % (0-6); HEMATOCRIT 41.1 % (35.0-45.0); HEMOGLOBIN 13.7 g/dl (12.0-16.0); LYMPHOCYTES # (AUTO) 1.2 X10'3 (1.1-4.8); LYMPHOCYTES % (AUTO) 11.4 % (21-51); MEAN CORPUSCULAR HEMOGLOBIN 28.5 PG (27.0-31.0); MEAN CORPUSCULAR HGB CONC 33.4 g/dL (33.0-36.5); MEAN CORPUSCULAR VOLUME 85.2 FL (78-98); MEAN PLATELET VOLUME 7.1 FL (7.4-10.4); MONOCYTES # (AUTO) 0.7 X10'3 (0-0.9); MONOCYTES % (AUTO) 6.8 % (2-12); NEUTROPHILS # (AUTO) 8.7 X10'3 (1.8-7.7); NEUTROPHILS % (AUTO) 80.6 % (42-75); PLATELET COUNT 333 X10'3 (140-440); RED BLOOD COUNT 4.83 X10'6 (4.20-5.60); RED CELL DISTRIBUTION WIDTH 13.3 % (11.5-14.5); WHITE BLOOD COUNT 10.8 X10'3 (4.5-11.0)
[2021-04-06 09:12] LABS: D-DIMER 14.23 MG/L FEU (0-0.50)
[2021-04-06 09:14] LABS: ALANINE AMINOTRANSFERASE 69 U/L (12-78); ALBUMIN 2.7 G/DL (3.4-5.0); ALBUMIN/GLOBULIN RATIO 0.7 (1.1-1.5); ALKALINE PHOSPHATASE 98 IU/L (46-116); ANION GAP 9 (8-16); ASPARTATE AMINO TRANSFERASE 39 U/L (10-37); BILIRUBIN,TOTAL 0.6 MG/DL (0.1-1.0); BLOOD UREA NITROGEN 22 MG/DL (7-18); BUN/CREATININE RATIO 24.7 (6.6-38.0); CALCIUM 8.4 MG/DL (8.5-10.1); CHLORIDE 101 MMOL/L (99-107); CREATININE 0.89 MG/DL (0.40-0.90); GLUCOSE 147 MG/DL (70-104); LACTATE DEHYDROGENASE 507 U/L (81-234); MAGNESIUM 2.5 MG/DL (1.5-2.4); PHOSPHORUS 5.2 MG/DL (2.3-4.5); POTASSIUM 3.9 MMOL/L (3.5-5.1); SODIUM 142 MMOL/L (135-145); TOTAL CARBON DIOXIDE 31.9 MMOL/L (24-32); TOTAL PROTEIN 6.8 G/DL (6.4-8.2); eGFR 65 ML/MIN
[2021-04-06 09:16] LABS: C-REACTIVE PROTEIN 0.17 MG/DL (0.0-0.5)
[2021-04-06 10:00] VITALS: BP 119/62
--- NOTE | 2021-04-06 10:43 | NUR ---
Completed full report of Venous Ultrasound results are on pts paper chart. Study completed on 04/04/21.
[2021-04-06] MEDS: K and/or MAG REPLACEMENT MC SCH ×2 (11:05→20:00)
[2021-04-06 11:47] LABS: PLATELET ESTIMATE NORMAL; TOTAL CELLS COUNTED 100
[2021-04-06 18:00] VITALS: BP 103/60
[2021-04-06] MEDS: salt irrigation nasal spray 45 ML SPRAY NS PRN (19:25)
[2021-04-06 22:00] VITALS: BP 110/65
[2021-04-06] MEDS: insulin glargine (Lantus) pen - multi-dose SQ SCH (23:12)
[2021-04-07 06:00] VITALS: BP_SYST 113; BP_SYST 116; BP_DIAS 62
--- NOTE | 2021-04-07 06:52 | NUR ---
Problems reprioritized. Patient report given, questions answered & plan of care reviewed with ILDEFONSO GUALLPA.
[2021-04-07] MEDS: BUDESONIDE IH SCH ×2 (08:00→20:55)
[2021-04-07] MEDS: docusate sod 100mg capsule PO SCH ×2 (08:00→20:00)
[2021-04-07] MEDS: K and/or MAG REPLACEMENT MC SCH (08:00)
[2021-04-07] MEDS: insulin Lispro (HumaLOG) vial - multi-dose SQ SCH ×2 (09:08→13:17)
[2021-04-07] MEDS: dexamethasone 4mg/ml inj IV SCH (09:10)
[2021-04-07] MEDS: HYDROchlorothiazide 25mg tablet PO SCH (09:12)
[2021-04-07] MEDS: nystatin 500,000 unit/5ML UD oral suspension PO SCH ×2 (09:12→20:52)
[2021-04-07] MEDS: lactobacillus rhamnosus 10,000 MMU CELLS/CAPSULE PO SCH ×2 (09:12→20:51)
[2021-04-07] MEDS: losartan 50mg tablet PO SCH (09:12)
[2021-04-07] MEDS: ascorbic acid 500mg tablet PO SCH ×2 (09:13→17:54)
[2021-04-07] MEDS: aspirin 81mg tab.chew PO SCH (09:13)
[2021-04-07] MEDS: zinc sulfate 220mg capsule PO SCH ×2 (09:13→20:52)
[2021-04-07] MEDS: cholecalciferol (vitamin D3) 1,000 unit (25mcg) tablet PO SCH (09:13)
[2021-04-07] MEDS: enoxaparin 30mg/0.3ml syringe SUBCUT SCH ×2 (09:14→20:52)
[2021-04-07] MEDS: enoxaparin 100mg/ml syringe SUBCUT SCH ×2 (09:14→20:53)
[2021-04-07 13:29] VITALS: BP 107/55
--- NOTE | 2021-04-07 14:35 | NUR ---
F/u 04/07: Pt PO this admit poor 0-25% avg meals though did improve to ~75% avg past 4 meals; overall not meeting needs. RD recommends Ensure High Protein TIDWM given most recent PO trends to optimize protein/kcal intake; notified. LBM 04/06. ILAN d/w RN regarding new DM DX; RN reports pt has been made aware by MD though currently sleeping. Would benefit from DM ed this admit prior to discharge. Will continue to monitor for additional nutrition intervention needs. Rec: 1. liberalize to regular diet given poor PO intake; encourage PO 2. Ensure High Protein TIDWM given recent PO trends; pending MD verification in EMR. IF PO regresses consider Ensure Enlive TIDWM 3. routine bowel care 4. scaled wt this admit; subsequent weekly wts 5. DM ed this admit once appropriate prior to discharge; new DM A1C 7.8% Addendum: 04/07/21 at [address] Amended: Links added.
[2021-04-07] MEDS ORDERED: lactose-reduced food (Ensure High Protein) 237ml bottle PO SCH (18:00)
[2021-04-07 18:06] VITALS: BP 104/60
--- NOTE | 2021-04-07 18:30 | NUR ---
Assumed care of pt at this time, report received from Ashley GUALLPA.
[2021-04-07] MEDS ORDERED: dexamethasone 4mg/ml inj IV SCH (20:00)
[2021-04-07] MEDS: dexamethasone inj 4 MG in normal saline 50ml IV soln 50 ML IV SCH (20:51)
[2021-04-07 22:00] VITALS: BP 97/56
[2021-04-07] MEDS: insulin glargine (Lantus) pen - multi-dose SQ SCH (22:05)
[2021-04-08 02:00] VITALS: BP 110/42
[2021-04-08 06:00] VITALS: BP 122/41
--- NOTE | 2021-04-08 06:39 | NUR ---
Report to Ashley GUALLPA.
[2021-04-08] MEDS: dexamethasone inj 4 MG in normal saline 50ml IV soln 50 ML IV SCH (07:54)
[2021-04-08] MEDS: aspirin 81mg tab.chew PO SCH (07:58)
[2021-04-08] MEDS: lactobacillus rhamnosus 10,000 MMU CELLS/CAPSULE PO SCH (07:58)
[2021-04-08] MEDS: HYDROchlorothiazide 25mg tablet PO SCH (07:58)
[2021-04-08] MEDS: docusate sod 100mg capsule PO SCH (07:58)
[2021-04-08] MEDS: nystatin 500,000 unit/5ML UD oral suspension PO SCH (07:58)
[2021-04-08] MEDS: ascorbic acid 500mg tablet PO SCH (07:59)
[2021-04-08] MEDS: losartan 50mg tablet PO SCH (07:59)
[2021-04-08] MEDS: cholecalciferol (vitamin D3) 1,000 unit (25mcg) tablet PO SCH (08:00)
[2021-04-08] MEDS: zinc sulfate 220mg capsule PO SCH (08:00)
[2021-04-08] MEDS: enoxaparin 100mg/ml syringe SUBCUT SCH (08:00)
[2021-04-08] MEDS: K and/or MAG REPLACEMENT MC SCH (08:00)
[2021-04-08] MEDS: enoxaparin 30mg/0.3ml syringe SUBCUT SCH (08:01)
[2021-04-08] MEDS: BUDESONIDE IH SCH (08:57)
[2021-04-08 10:00] VITALS: BP 105/57
--- NOTE | 2021-04-08 10:54 | NUR ---
F/u 04/08: ILAN d/w RN; pt appropriate for DM ed at this time. ILAN attempted to contact pt via TC however no answer. Written DM ed w/ RD contact information mailed to pt address in EMR. Would benefit from verbal ed this admit prior to discharge given new DM DX. Addendum: 04/08/21 at [address] Amended: Links added.
[2021-04-08 14:00] VITALS: BP 101/52
[2021-04-08] MEDS ORDERED: METF-950 PO (14:01)
[2021-04-08] MEDS ORDERED: ATOR10TA PO (14:01)
[2021-04-08] MEDS ORDERED: PIOG15TA8 PO (14:01)
--- NOTE | 2021-04-08 14:34 | NUR ---
O2 Sat at rest on room air:_88__% If below 89%: Recovery O2 Sat at rest on _92__LPM:_3___% via_NC (mask/nasal cannula, etc..) No further documentation is necessary. If O2 Sat did not drop below 89% on room air,ambulate patient on room air. O2 Sat while ambulating on room air:_76__% Recovery O2 Sat while ambulating on _4__LPM:__89_% No further documentation is necessary. If patient does not drop below 89% while ambulating, he/she does not qualify for home O2.
== END 2021-04-08 18:00 | disposition home or self-care (01) | DRG 177 ==
LOC: ER 12:56 → ED HOLD 18:51 → ORTHO 4S 20:15
PROVIDERS: ADMIT Family Medicine; ATTEND Family Medicine
PROC: 5A09357 Assistance with Respiratory Ventilation, Less than 24 Consecutive Hours, Continuous Positive Airway Pressure (ICD-10-PCS; principal; 2021-04-01)
PROC: 5A0935A Assistance with Respiratory Ventilation, Less than 24 Consecutive Hours, High Flow/Velocity Cannula (ICD-10-PCS; 2021-04-01)
PROC: B32T1ZZ Computerized Tomography (CT Scan) of Left Pulmonary Artery using Low Osmolar Contrast (ICD-10-PCS; 2021-04-01)
PROC: B3201ZZ Computerized Tomography (CT Scan) of Thoracic Aorta using Low Osmolar Contrast (ICD-10-PCS; 2021-04-01)
PROC: B32S1ZZ Computerized Tomography (CT Scan) of Right Pulmonary Artery using Low Osmolar Contrast (ICD-10-PCS; 2021-04-01)
PROC: 5A0955A Assistance with Respiratory Ventilation, Greater than 96 Consecutive Hours, High Flow/Velocity Cannula (ICD-10-PCS; 2021-04-02)
PROC: XW033H5 Introduction of Tocilizumab into Peripheral Vein, Percutaneous Approach, New Technology Group 5 (ICD-10-PCS; 2021-04-02)
PROC: 5A0935A Assistance with Respiratory Ventilation, Less than 24 Consecutive Hours, High Flow/Velocity Cannula (ICD-10-PCS; 2021-04-07)
DX: U07.1 COVID-19 (principal); J96.01 Acute respiratory failure with hypoxia; J12.82 Pneumonia due to coronavirus disease 2019; J44.0 Chronic obstructive pulmonary disease with (acute) lower respiratory infection; Z68.41 Body mass index [BMI] 40.0-44.9, adult; I10 Essential (primary) hypertension; E66.01 Morbid (severe) obesity due to excess calories; E11.9 Type 2 diabetes mellitus without complications; R51.9 Headache, unspecified
CPT/HCPCS: 36415; 36600; 71045; 71275; 80053; 80061; 80202; 81001; 82803; 82948; 83036; 83605; 83615; 83735; 84100; 84145; 85007; 85018; 85025; 85379; 86140; 87040; 87077; 87081; 87186; 93005; 93970; 94640; 94660; 94667; 94760; 96365; 96372; 97110; 97116; 97161; 97530; 97535; 99291; 99292; G0378; J1100; J1650; J1815; J2405; J3262; J3370; Q9967